=== PATIENT | female | born 1990 | race Caucasian/White ===

== ENCOUNTER 2024-11-09 16:36 | Emergency (ER) | payer MEDICAID, SELFPAY ==
[2024-11-09 17:21] VITALS: BP 125/86; PULSE 85; RESP 18; TEMP 37.1; O2SAT 98
[2024-11-09 18:27] VITALS: BMI 32.5
--- NOTE | 2024-11-09 18:37 | XR_ITS ---
Examination: CT brain head without contrast. 2-D sagittal coronal reconstructions Date and time of exam:November 09, 2024, 1900 hours INDICATIONS: Headache vomiting dizziness beginning 3 days ago CTDI: vol (mGy):48.9 DLP: (mGycm):983 Technique: Multiple CT axial sections of the brain have been obtained, 5 mm slice thickness. Contrast has not been administered. 2-D sagittal, coronal reconstructions have been obtained Low dose protocols were performed. One or more of the following dose reduction techniques were used; automated exposure control, adjustment of the mA and/or KV according to patient size, use of iterative reconstruction technique. Findings: No significant ventricular enlargement. Intra-axial or extra-axial hemorrhage density is not seen. No mass effect or midline shift Basal cisterns are not remarkable. Fourth ventricle is midline. Cranial vault intact. Impression: Negative for acute hemorrhage, mass effect or midline shift Advise clinical correlation and follow up accordingly
[2024-11-09 19:05] LABS: Basophils # (Auto) 0.1 Thou/mm3 (0.0-0.2); Basophils % (Auto) 1 % (0-2.5); Eosinophils # (Auto) 0.2 Thou/mm3 (0.0-0.5); Eosinophils % (Auto) 2 % (0-10); Hematocrit 38.0 % (36.0-46.0); Hemoglobin 12.5 g/dL (12.0-16.0); Immature Granulocytes Auto 0.03 Thou/mm3 (0.00-0.00); Lymphocytes # (Auto) 2.5 Thou/mm3 (1.0-4.8); Lymphocytes % (Auto) 26 % (10-50); Mean Corpuscular HGB Conc 32.9 g/dl (31.0-37.0); Mean Corpuscular Hemoglobin 25.6 pg (25.0-35.0); Mean Corpuscular Volume 78 fL (80-100); Monocytes # (Auto) 0.5 Thou/mm3 (0.0-0.8); Monocytes % (Auto) 5 % (0-12); Neutrophils # (Auto) 6.4 Thou/mm3 (1.8-7.7); Neutrophils % (Auto) 66 % (37-80); Nucleated Red Blood Cell # 0.00 Thou/mm3 (0.00-0.00); Nucleated Red Blood Cell % 0 /100 WBC (0); Platelet Count 286 Thou/mm3 (140-440); RDW Standard Deviation 39.9 fL (36.4-46.3); Red Blood Count 4.89 Miln/mm3 (4.00-5.20); White Blood Count 9.6 Thou/mm3 (3.6-11.0)
[2024-11-09 19:14] LABS: HCG,Qualitative Serum Negative
[2024-11-09 19:21] LABS: Alanine Aminotransferase 18 U/L (10-49); Albumin, Serum 4.5 gm/dL (3.5-5.0); Albumin/Globulin Ratio 1.4 (1.2-2.2); Alkaline Phosphatase 47 U/L (46-116); Anion Gap 8 (7-16); Aspartate Amino Transferase 18 U/L (0-34); BUN/Creatinine Ratio 9 Ratio (12-20); Bilirubin,Total 0.5 mg/dL (0.3-1.2); Blood Urea Nitrogen 8 mg/dL (9-23); Calcium 9.5 mg/dL (8.3-10.6); Calcium (Corrected) 9.5 mg/dL (8.5-10.1); Carbon Dioxide 24.1 mMol/L (20.0-31.0); Chloride 107 mMol/L (98-107); Creatinine (Component) 0.9 mg/dL (0.6-1.3); Estimated Creatinine Clearance 95.3 mL/min (>60); Globulin 3.3 gm/dL (2.3-3.5); Glucose 99 mg/dL (74-106); Osmolality,Calculated 275 (275-295); Potassium 4.5 mMol/L (3.4-5.1); Sodium 139 mMol/L (136-145); Total Protein 7.8 gm/dL (5.7-8.2); eGFR > 60 See Note
[2024-11-09 19:21] LABS: Collection Type, Urine Clean Catch
[2024-11-09 20:01] LABS: Amorphous Crystals,Urine Present (Absent); Bacteria,Urine 1+; Bilirubin,Urine Negative (Negative); Blood,Urine Negative (Negative); Clarity,Urine Turbid (Clear/Hazy); Color,Urine Lt-Yellow (Lt Yel-Yel); Glucose, Urine Negative (Negative); Ketones,Urine Negative (Negative); Leukocyte Esterase,Urine Positive (Negative); Nitrite,Urine Negative (Negative); PH,Urine 7.0 (5.0-7.0); Protein,Urine Negative (Neg - Trace); RBC,Urine 18 /hpf (0-3); Specific Gravity,Urine 1.013 (1.001-1.035); Squamous Epithelial Cell,Urine 54 /hpf (0-5); Urobilinogen,Urine Negative mg/dL (0.0-1.0); WBC,Urine 4 /hpf (0-5)
[2024-11-09 20:24] VITALS: BP 118/86; PULSE 83; RESP 18; TEMP 37.2; O2SAT 97
--- NOTE | 2024-11-09 20:26 | EDNOTE_ITS ---
ED Headache RME/HPI General Chief Complaint: Headache Stated Complaint: migraine, vomiting Time Seen by Provider: 11/09/24 18:31 Arrival date/time: 11/09/24 16:36 This is a case of 34-year-old female with history of migraine headache came in in the emergency room due to on and off headache located in the frontal area throbbing in character for 2 days associated with nausea vomiting no dizziness no numbness no weakness no tingling sensation denies any blurring of vision denies any head injury Limitations: no limitations Related Data Home Medications ?Medication ?Instructions ?Recorded ?Confirmed vits no.124-ferrous fum 1 tab PO QDAY 06/26/2 0 06/30/19 27 mg iron-folic acid 800 mcg tablet ( Vitamin) ferrous sulfate 325 mg (65 mg 325 mg PO QDAY 06/30/19 06/30/19 iron) tablet Previous Rx's ?Medication ?Instructions ?Recorded fkzxehjvxc-lhsoibgrwaliz-byahazic 1 cap PO Q6H PRN hea dache #10 caps 11/09/24 50 mg-325 mg-40 mg capsule ondansetron 4 mg disintegrating 4 mg PO Q8H PRN nausea and 11/09/24 tablet vomiting #20 tabs Allergies Allergy/AdvReac Type Severity Reaction Status Date / Time hydrocodone (From [place]) Allergy Unknown Vomiting Verified 11/08/23 09:35 Review of Systems Review of Systems Systems Reviewed: All systems reviewed, normal except as documented Constitutional Constitutional: Reports system reviewed and no additional complaints, except as documented, Reports as per HPI, Denies chills, Denies fever(s) and Reports headache(s) Eyes Eyes: Reports system reviewed and no additional complaints, except as documented, Reports as per HPI, Denies blurry vision and Denies diplopia ENT Ears, Nose, Mouth, and Throat: Reports system reviewed and no additional complaints, except as documented, Reports as per HPI and Reports headache(s) Cardiovascular Cardiovascular: Reports system reviewed and no additional complaints, except as documented and Reports as per HPI Respiratory Respiratory: Reports system reviewed and no additional complaints, except as d ocumented and Reports as per HPI Gastrointestinal Gastrointestinal: Reports system reviewed and no additional complaints, except as documented and Reports as per HPI Integumentary/Breasts Skin/Breast: Reports system reviewed and no additional complaints, except as documented and Reports as per HPI Neurologic Neurologic: Reports system reviewed and no additional complaints, except as documented, Reports as per HPI and Reports headache(s) Past Medical History Past Medical History NEUROLOGIC: Positive Migraine CARDIAC: Negative Congestive Heart Failure RESPIRATORY: Negative Chronic Obstructive Pulmonary Disease (COPD) GASTROINTESTINAL: Positive Gall Bladder Disease GENITOURINARY: Negative Renal Disease REPRODUCTIVE: Positive Previous Pregnancies (x3) ENDOCRINE: Negative Diabetes Mellitus Type 1 or Diabetes Mellitus Type 2 HEMATOLOGIC: Positive Anemia OTHER HISTORY: Negative Blood Transfusions Family History FAMILY HISTORY: Positive Family Cardiac Disorders (MGM HTN) Surgical History SURGICAL: Positive Tonsillectomy (age 11) Social History SMOKING STATUS: Never smoker ED Exam General Limitations: Present no limitations General appearance: Present alert, in no apparent distress and other (Patient is awake alert oriented not in distress nontoxic looking well-hydrated well- nourished) Head Head exam: Present atraumatic, normocephalic and normal inspection Eye Eye exam: Present normal appearance, PERRL, EOMI and other (no pappiledema) ENT ENT exam: Present normal exam, normal oropharynx, mucous membranes moist and other (Normal HEENT exam) Neck Neck exam: Present normal inspection, full ROM, trachea midline and other (Negative for meningeal sign); Absent tenderness, meningismus, lymphadenopathy or thyromegaly Chest Chest inspection: Present normal inspection and symmetric chest wall rise; Absent tenderness, rash or abscess Respiratory Respiratory exam: Present normal lung sounds bilaterally; Absent respiratory distress, wheezes, stridor, accessory muscle use or prolonged expiratory phase Cardiovascular Cardiovascular exam: Present regular rate, normal rhythm and normal heart sounds; Absent bradycardia, tachycardia, irregular rhythm, systolic murmur or diastolic murmur Abdominal Exam Abdominal exam: Present soft and normal bowel sounds; Absent distention, tenderness, guarding, rebound, rigidity, diminished bowel sounds, hyperactive bowel sounds, hypoactive bowel sounds or organomegaly Extremities Exam Extremities exam: Present normal inspection and full ROM Back Exam Back exam: Present normal inspection and full ROM Neurological Exam Neurological exam: Present alert, oriented X3, CN II-XII intact, normal gait, reflexes normal and other (Awake alert oriented x 4 no focal deficit GCS 15/15 steady gait no slurring of speech memory intact no facial droop CN II through XII is normal motor 5/5 in all extremities sensory +2 in all extremities reflex +2 in all extremities negative Babinski); Absent motor sensory deficit Psychiatric Psychiatric exam: Present normal affect and normal mood Skin Skin exam: Present warm, dry, intact and normal color Course Quality Measures none Orders Category Date Time Status CT head/brain wo con Stat Exams 11/09/24 18:37 Completed CBC Stat Lab 11/09/24 18:47 Completed Comprehensive Metabolic Panel Stat Lab 11/09/24 18:47 Completed HCG,Qualitative Serum Stat Lab 11/09/24 18:47 Completed Urinalysis Stat Lab 11/09/24 19:17 Completed DiphenhydrAMINE INJ [Benadryl Inj] Med 11/09/24 18:37 Discontinued 25 mg IVP X1 ONE Ketorolac Inj [Toradol Inj] Med 11/09/24 18:37 Discontinued 30 mg IVP X1 ONE Ondansetron Inj [Zofran Inj] Med 11/09/24 18:37 Discontinued 4 mg IVP X1 ONE Sodium Chloride 0.9% 1000 ml [Ns] 1,000 ml Med 11/09/24 18:37 Discontinued IV 999 mls/hr Vital Signs Vital signs: Vital Signs Temperature 98.7 F 11/09/24 17:21 Pulse Rate 85 11/09/24 17:21 Respiratory Rate 18 11/09/24 17:21 Blood Pressure 125/86 H 11/09/24 17:21 Pulse Oximetry (%) 98 11/09/24 17:21 Oxygen Delivery Method Room Air 11/09/24 17:21 Patient is afebrile not tachycardic not tachypneic BP stable not hypoxic oxygen saturation is in room air nomal Headache MDM Narrative MDM Narrative:: This is a case of 34-year-old female with history of migraine headache came in in the emergency room due to on and off headache located in the frontal area throbbing in character for 2 days associated with nausea vomiting no dizziness no numbness no weakness no tingling sensation denies any blurring of vision denies any head injury patient is awake alert oriented not in distress nontoxic looking well-hydrated well-nourished excellent skin turgor PERRL EOM intact normal conjunctiva no pappiledema neurological exam is normal awake alert oriented x 4 no focal deficit GCS 15/15 strength steady gait no slurring with speech memory intact no facial droop CN II to XII is normal motor sensory reflex were normal negative Babinski blood test showed no leukocytosis no anemia kidney liver function is normal no electrolyte imbalance patient is not patient CT scan is normal and unremarkable migraine cocktail was given Benadryl Zofran Toradol hydration of normal saline after 1 hour patient condition markedly improved and patient will be discharged home with stable condition patient was advised to follow-up with PCP to be referred to neurologist for headache for any worsening symptoms or any emergent concerns she will return to the emergency room immediately or call [phone] 11 Patient was discharged with comfortable condition walking with stable gait. Patient verbalized no further complains explained diagnosis and answered patient question. Patient is comfortable with the proposed management plan including the need to follow up with his/her primary care physician and any specialist if applicable Discussed patient for any urgent condition or worsening sx, He/She needed to go to emergency room immediately or call 911. Patient acknowledge the responsibility to follow up as instructed and to monitor her/his symptoms. For any persistence of the symptoms for more than 3-5 days return precaution advised. Discussed the result of the test and was given printed discharge instruction Patient data External records reviewed:: [facility] previous records Clinical information provided by:: patient Social determinants that could affect healthcare access:: none Patient has the following chronic illnesses:: None How is presenting disease/condition affected by chronic disease/condition?: no chronic disease Evaluation data The following diagnostics were reviewed and interpreted by me:: lab results and radiology exam(s) Lab and/or radiology exams considered but not ordered:: Reviewed Interpretation Summary: Reviewed Medications / Prescriptions Medications or Prescriptions considered but not ordered:: Given Medication administrations:: Medication Administration History Discontinued Medications Diphenhydramine HCl (Diphenhydramine Inj 50 Mg/Ml Vial) 25 mg IVP X1 ONE Stop: 11/09/24 18:38 Last Admin: 11/09/24 20:36 Dose: 25 mg Documented By: CHRISSY Sodium Chloride (Ns) 1,000 mls @ 999 mls/hr IV .Q1H1M ONE Stop: 11/09/24 19:37 Last Infusion: 11/09/24 22:05 Dose: Infused Documented By: Admin: 11/09/24 20:34 Dose: 999 mls/hr Documented By: CHRISSY Ketorolac Tromethamine (Ketorolac Inj 30 Mg/Ml Vial) 30 mg IVP X1 ONE Stop: 11/09/24 18:38 Last Admin: 11/09/24 20:37 Dose: 30 mg Documented By: CHRISSY Ondansetron HCl (Ondansetron Inj 2 Mg/Ml Inj 2 Ml) 4 mg IVP X1 ONE; Protocol Stop: 11/09/24 18:38 Last Admin: 11/09/24 20:34 Dose: 4 mg Documented By: CHRISSY Given Consultations Consultation(s) initiated? (list below): No Diagnosis Differential diagnosis headache: migraine, tension headache, headache and sinusitis Most likely diagnosis given after review of the tests above:: Headache Admission Indicated Admission indicated?: not indicated Explain why admission is indicated or not indicated:: Not indicated Admission Request Was there a request for admission?: No Admission Attestation Admission request attestation: Not indicated Disposition Plan Disposition Plan: Discharge Discharge Attestation Discharge Attestation: The patient and all family members were given an opportunity to ask questions and understood the discharge instructions. Discharge instructions specifically effects, indications for sooner follow up or return to the emergency department, and the expected course of current diagnosis. Patient condition: Stable Discharge Plan Plan Patient Disposition: HOME (Self Care) Patient condition on transfer: Stable Prescriptions/Referrals Prescriptions/Med Rec: New gvughqdshc-phdotnwlljtph-hdvb 50-325-40 mg capsule 1 cap PO Q6H PRN (Reason: headache) Qty: 10 0RF ondansetron 4 mg tablet,disintegrating 4 mg PO Q8H PRN (Reason: nausea and vomiting) Qty: 20 0RF No Action ferrous sulfate 325 mg (65 mg iron) Tablet 325 mg PO QDAY Vitamin 27 mg iron- 800 mcg Tablet 1 tab PO QDAY Referrals: Michelle Prince PA-C [Primary Care Provider] - In 1 week Problem List Clinical Impression: Headache Patient/Caregiver Discharge Instructions Education Materials: Self-Care for Headaches Additional Instructions: Follow-up with your primary care physician in 2 days for evaluation and to be referred to neurologist for your recurrent headaches and for further evaluation and treatment of your migraine headache recurrence persistent worsening symptoms or any emergent concern call 911 or go to the nearest emergency room take your medication as directed keep hydrated Print Language: Kyrgyz Stand Alone Forms: [employer] Award Info., Patient Portal Info Letter PA/JOSE ANGEL Supervising Physician HOLA/JOSE ANGEL Supervising Physician: Dr abdul
[2024-11-09] MEDS: SODIUM CHLORIDE 0.9% 1000 ML 1,000 ML 999 ML IV (20:34)
[2024-11-09] MEDS: ONDANSETRON INJ 2 MG/ML INJ 2 ML 4 MG IVP (20:34)
[2024-11-09] MEDS: KETOROLAC INJ 30 MG/ML VIAL IVP (20:37)
== END 2024-11-09 22:06 | disposition home or self-care (01) ==
PROVIDERS: Nurse Practitioner Family; Emergency Provider Emergency Medicine; PCP Specialist
DX: R51.9 Headache, unspecified (principal)
CPT/HCPCS: 36415; 70450; 80053; 81001; 84703; 85025; 96361; 96374; 96375; 99284; J1200; J1885; J2405; J7030